=== PATIENT | male | born 1985 | race African-American/Black ===

== ENCOUNTER 2022-12-29 | Emergency (ER) | payer SELFPAY ==
[~2022-12-29] VITALS: Ht 188 cm; Wt 104.3 kg
[2022-12-29] MEDS ORDERED: KETOROLAC TROMETH 60MG/2ML VIAL IM ONE (01:15)
[2022-12-29] MEDS ORDERED: NAP500T PO (02:41)
[2022-12-29 02:42] VITALS: BP 141/82
== END 2022-12-29 02:51 | disposition home or self-care (01) ==
LOC: ER
DX: R07.89 Other chest pain (principal)
CPT/HCPCS: 71045; 96372; 99283; J1885; 93005